=== PATIENT | male | born 1995 | race Caucasian/White ===

== ENCOUNTER 2017-10-13 23:54 | Emergency (ER) | payer OTHER ==
[~2017-10-13] VITALS: Ht 180.3 cm; Wt 99.8 kg
[2017-10-14 00:01] VITALS: BP 139/81
[2017-10-14] MEDS ORDERED: BACTRIM DS TAB1 EACH PO (00:20)
[2017-10-14] MEDS ORDERED: NORCO 5-325 TA1 EACH PO (00:20)
== END 2017-10-14 00:28 | disposition home or self-care (01) ==
LOC: M.ERS 23:54
DX: L02.416 Cutaneous abscess of left lower limb (principal); L03.116 Cellulitis of left lower limb; F17.210 Nicotine dependence, cigarettes, uncomplicated; Z86.14 Personal history of Methicillin resistant Staphylococcus aureus infection; Z88.1 Allergy status to other antibiotic agents